=== PATIENT | female | born 1945 | race Hispanic/Latino ===

== ENCOUNTER 2017-07-27 05:32 | Observation (INO) | payer OTHER, MEDICARE ==
[2017-07-25 11:40] VITALS: BP 152/69
[2017-07-25 12:16] LABS: BASOPHILS % (AUTO) 0.9 % (0.0-5.0); HEMATOCRIT 35.1 % (36-48); LYMPHOCYTES % (AUTO) 22.1 % (21.0-51.0); MEAN CORPUSCULAR HEMOGLOBIN 32.3 pg (27.0-33.0); MEAN CORPUSCULAR HGB CONC 35.7 g/dL (32.0-36.0); MEAN CORPUSCULAR VOLUME 90.7 fL (79-99); MONOCYTES % (AUTO) 16.3 % (3.0-13.0); NEUTROPHILS % (AUTO) 55.7 % (40.0-77.0); PLATELET COUNT (AUTO) 252 K/uL (130-400); RED BLOOD CELL COUNT(AUTO) 3.88 MIL/uL (4.00-5.50); RED CELL DISTRIBUTION WIDTH 14.1 % (11.0-15.5); WHITE BLOOD COUNT (AUTO) 7.2 K/uL (4.8-10.8)
[2017-07-25 12:25] LABS: CREATININE 1.1 mg/dL (0.5-1.5); INR 0.97 (0.85-1.15); POTASSIUM 4.1 mmol/L (3.5-5.1); PROTHROMBIN TIME 10.2 SEC (9.6-11.6)
[2017-07-25 12:52] LABS: BASOPHILS % (MANUAL) 1 % (0-2); EOSINOPHILS % (MANUAL) 8 % (1-6); LYMPHOCYTES % (MANUAL) 23 % (22-44); MAN.DIFF COMMENT-IMPRESSION MANUAL DIFFERENTIAL; MONOCYTES % (MANUAL) 15 % (2-9); SEGMENTED NEUTROPHILS % 53 % (40-70)
[2017-07-25 12:54] LABS: PLATELET MORPHOLOGY COMMENT ADEQUATE
[~2017-07-27] VITALS: Ht 160 cm; Wt 85.3 kg
[2017-07-27] VITALS (10 sets, daily range): BP systolic 129–159; BP diastolic 56–88
[~2017-07-27 05:32] MED LIST: CLOP75TA14 PO; FENO54TA6 PO; FOLI1TAB15 PO; GLIP-220 PO; INSLAN SQ; INSU200I SQ; LOSA100T29 PO; METH2.5T6 PO; METO50TA18 PO; MONT10TA24 PO; SIMV20TA6 PO; SOLI5 PO; TRAZ-185 PO
[2017-07-27] MEDS ORDERED: INSULIN HUMULIN R 100 UNIT/ML 3ML ONE (06:51)
[2017-07-27] MEDS ORDERED: SODIUM CHLORIDE 0.9% 1000ML 1,000 ML IV ONE (07:51)
[2017-07-27] MEDS ORDERED: CEFAZOLIN 1GM / D5W 50ML 150 ML ONE (12:07)
[2017-07-27] MEDS ORDERED: BUPIVACAINE/PF 0.25% 30ML VIAL IJ ONE (12:07)
[2017-07-27] MEDS ORDERED: ISOVUE-300 100 ML VIAL IV ONE (12:08)
[2017-07-27] MEDS ORDERED: MEPERIDINE-PF 25 MG/ML SYG ONE ×5 (12:08→14:44)
[2017-07-27] MEDS ORDERED: MIDAZOLAM HCL 1 MG/ML 2ML VIAL ONE ×5 (12:08→14:44)
[2017-07-27] MEDS ORDERED: LIDOCAINE HCL 1% MDV 50ML VIAL ONE (12:08)
[2017-07-27] MEDS ORDERED: THROMBIN-JMI 5000 UNIT/VIAL TP ONE (13:56)
[2017-07-27] MEDS ORDERED: OCTYL 2-CYANOACRYLATE 1 EACH TP ONE (14:39)
[2017-07-27] MEDS ORDERED: VANCOMYCIN 1GM+NS 250ML 250 ML IV ONE (15:29)
[2017-07-27] MEDS ORDERED: TRAZODONE HCL 50 MG TAB PO PRN (16:00)
[2017-07-27] MEDS ORDERED: ACETAMINOPHEN 325 MG TAB PO PRN (16:00)
[2017-07-27] MEDS ORDERED: GLUCAGON 1MG KIT 1 MG ML IM PRN (16:00)
[2017-07-27] MEDS ORDERED: DEXTROSE 50%-WATER 50 ML DISP.SYRIN IV PRN (16:00)
[2017-07-27] MEDS ORDERED: ONDANSETRON HCL 4 MG/2 ML VIAL IV PRN (16:00)
[2017-07-27] MEDS ORDERED: DOXY100C2 PO (16:07)
[2017-07-27] MEDS: INSULIN HUMULIN R 100 UNIT/ML 3ML SQ SCH ×2 (16:30→20:14)
[2017-07-27] MEDS: METOPROLOL TARTRATE 50 MG TAB PO SCH (20:38)
[2017-07-27] MEDS ORDERED: MONTELUKAST SODIUM 10 MG TAB PO SCH (21:00)
[2017-07-27] MEDS ORDERED: LOSARTAN 100 MG TABLET PO SCH (21:00)
[2017-07-27] MEDS ORDERED: INSULIN GLARGINE 100 UNITS/ML 10 ML VIAL SQ SCH (21:00)
[2017-07-27] MEDS ORDERED: ATORVASTATIN CALCIUM 10 MG TABLET PO SCH (21:00)
[2017-07-27] MEDS: CEFAZOLIN SODIUM 1 GM VIAL IVP SCH (23:27)
[2017-07-27] MEDS: ACETAMINOPHEN 325 MG TAB PO PRN (23:38)
[2017-07-28 04:00] VITALS: BP 123/69
[2017-07-28 04:10] VITALS: BP 140/55
[2017-07-28] MEDS: INSULIN LISPRO 100 UNIT/ML 3ML SQ SCH ×2 (05:22→11:42)
[2017-07-28] MEDS: CEFAZOLIN SODIUM 1 GM VIAL IVP SCH (05:22)
[2017-07-28] MEDS: INSULIN HUMULIN R 100 UNIT/ML 3ML SQ SCH ×3 (05:48→16:30)
[2017-07-28 07:00] VITALS: BP 143/58
[2017-07-28] MEDS ORDERED: CLOPIDOGREL BISULFATE 75 MG TAB PO SCH (09:00)
[2017-07-28] MEDS ORDERED: FOLIC ACID 1 MG TABLET PO SCH (09:00)
[2017-07-28] MEDS ORDERED: FENOFIBRATE NANOCRYSTALLIZED 48 MG TAB PO SCH (09:00)
[2017-07-28] MEDS ORDERED: GLIPIZIDE XL 10MG TAB PO SCH (09:00)
[2017-07-28] MEDS: METOPROLOL TARTRATE 50 MG TAB PO SCH (09:57)
[2017-07-28 11:00] VITALS: BP 160/74
[2017-07-28] MEDS: ACETAMINOPHEN 325 MG TAB PO PRN (11:49)
[2017-07-28 16:00] VITALS: BP 139/61
[2017-08-03] MEDS ORDERED: METHOTREXATE SODIUM 2.5 MG TABLET PO SCH (09:00)
== END 2017-07-28 17:00 | disposition home or self-care (01) ==
LOC: DAH 05:32 → 2AH 05:33 → DAH 05:33 → UNDOADMOB 05:33
PROVIDERS: ADMIT Internal Medicine; ATTEND Internal Medicine
DX: T82.110A Breakdown (mechanical) of cardiac electrode, initial encounter (principal); I10 Essential (primary) hypertension; I25.10 Atherosclerotic heart disease of native coronary artery without angina pectoris; I11.0 Hypertensive heart disease with heart failure; I50.9 Heart failure, unspecified; I25.5 Ischemic cardiomyopathy; E78.5 Hyperlipidemia, unspecified; E11.9 Type 2 diabetes mellitus without complications; M06.9 Rheumatoid arthritis, unspecified; Y71.2 Prosthetic and other implants, materials and accessory cardiovascular devices associated with adverse incidents; D64.9 Anemia, unspecified; Z82.49 Family history of ischemic heart disease and other diseases of the circulatory system; Z83.3 Family history of diabetes mellitus; Z90.710 Acquired absence of both cervix and uterus; Z95.5 Presence of coronary angioplasty implant and graft; Z95.810 Presence of automatic (implantable) cardiac defibrillator; Z92.3 Personal history of irradiation; Z79.899 Other long term (current) drug therapy; Z79.01 Long term (current) use of anticoagulants; I44.7 Left bundle-branch block, unspecified
CPT/HCPCS: 33216; 33224; 36415; 71046; 80048; 82948 ×7; 85025; 85610; 85730; 93005; 96372 ×2; 96374; 96376; A4218; A4606; C1769 ×2; C1894 ×2; C1895; C1900; G0378 ×35; J0690 ×3; J1815 ×2; J2175 ×5; J2250 ×5; J3370; J3490 ×3; J7030; Q9967; 99156; 99157

== ENCOUNTER 2017-12-26 03:39 | Observation (INO) | payer OTHER, MEDICARE ==
[~2017-12-26 03:39] MED LIST changes: +ASPI-555 PO; +FERR159T2 PO; -GLIP-220 PO; +LOSA100T20 PO; -LOSA100T29 PO; -METH2.5T6 PO; -TRAZ-185 PO
[2017-12-26] MEDS ORDERED: ACETAMINOPHEN EXTRA STRENGTH 500 MG TABLET ONE (03:56)
[2017-12-26 04:07] LABS: APPEARANCE,URINE Cloudy (CLEAR); BASOPHILS % (AUTO) 0.7 % (0.0-5.0); BILIRUBIN,URINE Negative (NEGATIVE); COLOR,URINE Yellow (YELLOW); EOSINOPHILS % (AUTO) 0.1 % (0.0-8.0); GLUCOSE, URINE (UA) >=1000 mg/dL (NEGATIVE); HEMATOCRIT 37.2 % (36-48); KETONES,URINE Trace mg/dL (NEGATIVE); LEUKOCYTE ESTERASE ,URINE Moderate (NEGATIVE); LYMPHOCYTES % (AUTO) 6.5 % (21.0-51.0); MEAN CORPUSCULAR HEMOGLOBIN 31.4 pg (27.0-33.0); MEAN CORPUSCULAR HGB CONC 34.2 g/dL (32.0-36.0); MEAN CORPUSCULAR VOLUME 91.9 fL (79-99); MONOCYTES % (AUTO) 1.5 % (3.0-13.0); NEUTROPHILS % (AUTO) 91.2 % (40.0-77.0); NITRATE,URINE Negative (NEGATIVE); OCCULT BLOOD,URINE Small (NEGATIVE); PH,URINE 5.5 (5.0-8.0); PLATELET COUNT (AUTO) 203 K/uL (130-400); PROTEIN,URINE POS 1+ (NEGATIVE); RED BLOOD CELL COUNT(AUTO) 4.05 MIL/uL (4.00-5.50); RED CELL DISTRIBUTION WIDTH 14.3 % (11.0-15.5); WHITE BLOOD COUNT (AUTO) 22.8 K/uL (4.8-10.8)
[2017-12-26] MEDS ORDERED: SODIUM CHLORIDE 0.9% 1000ML 3,000 ML IV ONE (04:11)
[2017-12-26] MEDS ORDERED: SODIUM CHLORIDE 0.9% 50 ML IV ONE (04:11)
[2017-12-26] MEDS ORDERED: ZOSYN 3.375GM+NS 50ML 50 ML IV ONE (04:11)
[2017-12-26] MEDS ORDERED: ONDANSETRON HCL 4 MG/2 ML VIAL ONE (04:12)
[2017-12-26 04:18] LABS: INR 1.07 (0.85-1.15); PARTIAL THROMBOPLASTIN TIME 32.9 SEC (26.3-35.5); PROTHROMBIN TIME 11.2 SEC (9.6-11.6)
[2017-12-26 04:19] LABS: ALBUMIN 3.5 g/dL (3.5-5.0); CREATININE 1.7 mg/dL (0.5-1.5); POTASSIUM 3.7 mmol/L (3.5-5.1); TOTAL PROTEIN, SERUM 8.2 g/dL (6.0-8.3)
[2017-12-26 04:26] LABS: TROPONIN I 0.45 ng/mL (0.00-0.06)
[2017-12-26] MEDS ORDERED: OSELTAMIVIR PHOSPHATE 75 MG CAP ONE (04:29)
[2017-12-26 04:32] LABS: BACTERIA,URINE Few /HPF (None Seen); WBC,URINE >100 /HPF (0-1)
[2017-12-26] MEDS ORDERED: FAMOTIDINE/PF 20 MG/2 ML VIAL IV ONE (04:42)
[2017-12-26] MEDS ORDERED: INSULIN HUMULIN R 100 UNIT/ML 3ML ONE (04:43)
[2017-12-26] MEDS ORDERED: SODIUM CHLORIDE 0.9% 1000ML 1,000 ML IV ONE ×2 (05:03→05:45)
[2017-12-26] MEDS ORDERED: LACTATED RINGERS 1000ML 1,000 ML IV ONE (05:03)
[2017-12-26] MEDS ORDERED: ASPIRIN 325MG EC TAB 325 MG TABLET.DR PO SCH (05:15)
[2017-12-26] MEDS ORDERED: IBUPROFEN 400 MG TABLET ONE (05:19)
[2017-12-26] MEDS ORDERED: DEXAMETHASONE SOD PHOSPHATE 10MG/ML 1ML VIAL ONE (05:25)
[2017-12-26] MEDS ORDERED: DiphenhydrAMINE HCL 50 MG/ML VIAL ONE (05:25)
[2017-12-26] MEDS ORDERED: MAGNESIUM 2GM PREMIX 50ML 50 ML IV ONE (05:45)
[2017-12-26] MEDS ORDERED: ALPRAZOLAM 0.25 MG TABLET PO PRN (05:45)
[2017-12-26] MEDS ORDERED: ACETAMINOPHEN 325 MG TAB PO PRN (05:45)
[2017-12-26] MEDS ORDERED: PHARMACY COMMUNICATION MISC SCH (05:45)
[2017-12-26] MEDS ORDERED: LACTATED RINGERS 1000ML 1,000 ML IV SCH (05:45)
[2017-12-26] MEDS ORDERED: MORPHINE SULFATE 2 MG/ML 1ML SYG IVP PRN (05:45)
[2017-12-26] MEDS ORDERED: VANCOMYCIN 1GM+NS 250ML 250 ML IV SCH (06:00)
[2017-12-26] MEDS ORDERED: ETOMIDATE 2 MG/ML 10 ML VIAL IVP ONE (06:00)
[2017-12-26] MEDS ORDERED: ZOSYN 3.375GM+NS 50ML 50 ML IV SCH (06:00)
[2017-12-26] MEDS ORDERED: SUCCINYLCHOLINE CHLORIDE 20 MG/ML 10 ML VIAL IVP ONE (06:00)
[2017-12-26] MEDS ORDERED: EPINEPHRINE 0.1 MG/ML 10 ML SYG IVP ONE (06:00)
[2017-12-26] MEDS ORDERED: SODIUM BICARB 8.4% 50ML SYRINGE IVP ONE (06:00)
[2017-12-26] MEDS ORDERED: ROCURONIUM BROMIDE 10MG/1ML 5ML VL IV ONE (06:00)
[2017-12-26 06:05] LABS: HEMOGLOBIN A1C 8.6 % (4.0-6.0)
[2017-12-26 06:10] LABS: CHOLESTEROL 97 mg/dL (<200); HDL CHOLESTEROL 39 mg/dL (35-85); LDL DIRECT 50 mg/dL (0-99); TRIGLYCERIDES 110 mg/dL (30-200)
[2017-12-26 06:29] LABS: ABG BASE EXCESS -19.9 mmol/L (-2.0-3.0); ABG HCO3 15.9 mmol/L (21.0-28.0); ABG PCO2 94 mmHg (32-45)
[2017-12-26] MEDS ORDERED: NOREPINEPHRINE BITARTRATE 1 MG/1 ML ML IV ONE (06:30)
[2017-12-26] MEDS ORDERED: SODIUM BICARB 50MEQ 50ML VIAL ONE (06:48)
[2017-12-26] MEDS ORDERED: EPINEPHRINE 0.1 MG/ML 10 ML SYG ONE (06:48)
[2017-12-26] MEDS ORDERED: OSELTAMIVIR PHOSPHATE 75 MG CAP PO SCH (09:00)
[2017-12-26] MEDS ORDERED: ENOXAPARIN SODIUM 40 MG/0.4 ML SYRINGE SQ SCH (09:00)
[2017-12-26] MEDS ORDERED: PANTOPRAZOLE SODIUM 40 MG TABLET.DR PO SCH (09:00)
[2017-12-27] MEDS ORDERED: ASPIRIN 81MG TAB.CHEW PO SCH (09:00)
== END 2017-12-26 06:55 | disposition expired ==
LOC: EDH 03:39 → EDHIP 05:04 → 3BH 05:18 → EDHIP 06:28
PROVIDERS: ADMIT Internal Medicine Pulmonary Disease; ATTEND Internal Medicine Pulmonary Disease
DX: A41.9 Sepsis, unspecified organism (principal); R65.20 Severe sepsis without septic shock; I21.09 ST elevation (STEMI) myocardial infarction involving other coronary artery of anterior wall; I46.9 Cardiac arrest, cause unspecified
CPT/HCPCS: 31500; 36415; 36600; 71045 ×3; 74176; 80053; 80061; 81001; 82550; 82803; 82948; 83036; 83605 ×2; 83735; 83874; 84484; 85025; 85610; 85730; 87040 ×2; 87077; 87088; 87186; 87804 ×2; 92950 ×2; 93005 ×3; 99291; G0378 ×2; J0171 ×2; J0330; J1100; J1200; J1815; J2405; J2543; J3490 ×6; J7030 ×2; J7120; 94002; 99292